=== PATIENT | male | born 1990 | race Hispanic/Latino ===

== ENCOUNTER 2024-10-30 13:09 | Emergency (ER) | payer SELFPAY ==
--- NOTE | ~2024-10-30 | XR_ITS ---
EXAMINATION: XR chest 2V DATE: 10/30/2024 13:37 INDICATION: Shortness of breath. TECHNIQUE: Frontal and lateral views of the chest were obtained. COMPARISON: None. FINDINGS: There is no pneumonia, pleural effusion, or pneumothorax. The heart size is normal. IMPRESSION: 1. No acute cardiopulmonary disease. Reviewed, dictated and finalized at location A. NESS ADVISOR
--- NOTE | 2024-10-30 13:25 | ECG_ITS ---
Test Date: 2024-10-30 13:56:18 Measurements Intervals [place] Rate: 99 P: 37 [place]: 141 QRS: 73 QRSD: 100 T: 27 QT: 310 QTc: 399 Interpretive Statements SINUS RHYTHM MINIMAL Q WAVES- INFERIOR LEADS BASELINE ARTIFACT- I, II, III, AVR, AVL, AVF BORDERLINE ECG No previous ECG available for comparison Electronically Signed On 10-30-2024 19:19:52 [employer] by Nir Gasca D.O.
--- NOTE | 2024-10-30 13:26 | ED.SOB ---
HPI - SOB/Dyspnea General Chief Complaint: Shortness of Breath/Dyspnea Stated Complaint: sob Time Seen by Provider: 10/30/24 13:20 History of Present Illness HPI Narrative: 34-year-old male presenting to the emergency room with chief complaint of shortness of breath and minimally productive cough. Patient states symptoms have been going on for last several weeks. Associated with white phlegm with some blood tinged occasional sputum. Denies any nausea vomiting. Today started coughing free willing started developing some chest discomfort. No history of diabetes or hypertension. States he had childhood asthma but has not had any inhaler since then. No allergies. Has not taken any medications aside from NyQuil for symptom control. Denies any sick contacts. Related Data Allergies Allergy/AdvReac Type Severity Reaction Status Date / Time No Known Allergies Allergy Verified 10/30/24 13:44 Review of Systems Review of Systems: As reviewed above in HPI Exam Narrative: GENERAL: Overall well-appearing and coughing very frequently throughout the examination but not any distress. HEAD: [Normocephalic, atraumatic.] EYES: [PERRLA and EOMI.] ENT: Nares clear, no rhinorrhea or epistaxis. Mucous membranes moist. NECK: Supple. CHEST: [Clear to auscultation. No respiratory distress.] Coughing frequently HEART: [Regular rate and rhythm]. No murmur heard. [Normal peripheral pulses.] ABDOMEN: [Soft, nondistended], [nontender], [No rigidity or guarding] EXTREMITIES: Normal range of motion. [No edema.] SKIN: Warm, dry, no rash. NEURO: [No focal deficits]. Alert and oriented [x3.] PSYCH: [Normal mood and affect.] Course Vital Signs Vital signs: Vital Signs Temperature 36.4 C 10/30/24 13:45 Pulse Rate 98 10/30/24 13:45 Respiratory Rate 22 H 10/30/24 13:45 Blood Pressure 143/91 H 10/30/24 13:45 Pulse Oximetry 98 10/30/24 13:45 Oxygen Delivery Room Air 10/30/24 13:45 Temperature 36.4 C 10/30/24 13:45 Pulse Rate 102 H 10/30/24 14:14 Respiratory Rate 14 10/30/24 14:14 Blood Pressure 143/91 H 10/30/24 13:45 Pulse Oximetry 98 10/30/24 13:45 Oxygen Delivery Room Air 10/30/24 13:45 MDM - SOB/Dyspnea MDM Narrative Medical decision making narrative: 34-year-old male presenting with what sounds to be upper respiratory infection symptoms including a productive cough, difficulty in breathing and chest discomfort with coughing. Symptoms going on for last several weeks, worsening this morning so he came to the ER. Tried NyQuil without any other symptom controlling medications. He is coughing very frequently throughout the examination but is nonproductive. He has clear breath sounds with a signs of respiratory distress. Overall he is well-appearing and healthy. Will obtain a two view chest x-ray, EKG for his chest discomfort and COVID fluid RSV swabs were obtained. Suspicion presently is for viral infection versus pneumonia versus bronchitis, less likely any kind thoracic processes as pneumothorax, laryngospasm or asthma. He was treated with benzonatate for cough, pseudoephedrine for decongestion and given a nebulizer treatment. Patient was re-evaluated had symptomatic improvement, no longer coughing and felt much better. His chest x-ray shows no consolidation or pneumonia. He does have RSV on his viral panel and his EKG was nonischemic. Patient is safe and stable for discharge home at this time will send him with a Medrol Dosepak as well as albuterol as needed in addition to benzonatate. Patient family were comfortable with this plan of care. Medical Records Attestation: I reviewed the patient's medical records. Lab Data Attestation: I reviewed the patient's lab results. Labs: Lab Results 10/30/24 Range/Units 13:37 Influenza A (RT-PCR) Negative (Negative) Influenza B (RT-PCR) Negative (Negative) RSV (RT-PCR) Positive A (Negative) SARS-CoV-2 RNA (RT-PCR) Negative (Negative) Imaging Data Attestation: I personally reviewed and interpreted this imaging study as follows: My impression: Impressions Chest X-Ray 10/30/24 13:41 IMPRESSION: 1. No acute cardiopulmonary disease. Discharge Plan Discharge Clinical Impression: Respiratory syncytial virus (RSV), Acute bronchiolitis due to respiratory syncytial virus (RSV) Patient Disposition: Home, Self-Care Condition: Stable Instructions: Antibiotic Form, RSV (Respiratory Syncytial Virus) Infection (ED) Additional Instructions: Your x-ray was reassuring without any pneumonia, you have a inflammatory process called bronchiolitis likely secondary to the RSV virus that you have tested positive for. We will send you home with steroids and albuterol. Return with any new or worsening concerns otherwise follow-up with regular doctor. Tylenol and ibuprofen for pain or fevers. Patient Language: Serbian Prescriptions: New benzonatate 200 mg capsule 200 mg PO TID PRN (Reason: cough) Qty: 20 0RF methylprednisolone [Medrol ([place])] 4 mg tablets,dose pack See Rx Instructions .ROUTE .COMPLEX Qty: 21 0RF Rx Instructions: orally per package directions albuterol sulfate 90 mcg/actuation HFA aerosol inhaler 2 puff inhalation QID PRN (Reason: shortness of breath or wheezing) Qty: 8.5 0RF Follow-up/Referrals: PHYSICIAN NOT ON STAFF,NONSTAFF [Primary Care Provider] - Time of Disposition: 14:38
[2024-10-30 13:45] VITALS: BP 143/91; PULSE 98; RESP 22; TEMP 36.4; O2SAT 98
[2024-10-30] MEDS: BENZONATATE 100 MG CAPSULE 200 MG PO (13:51)
[2024-10-30] MEDS: PSEUDOEPHEDRINE HCL 30 MG TABLET PO (13:51)
[2024-10-30 14:07] VITALS: PULSE 94; RESP 14
[2024-10-30] MEDS: IPRATROPIUM 0.5 MG/ALBUTEROL SULFATE 2.5 MG AMPUL.NEB 3 ML INHALATION (14:07)
[2024-10-30 14:14] VITALS: PULSE 102; RESP 14
[2024-10-30 14:26] LABS: Influenza A QL RT-PCR Negative (Negative); Influenza B QL RT-PCR Negative (Negative); RSV RNA, RT-PCR Positive (Negative); SARS-CoV-2 RNA PCR Negative (Negative)
[2024-10-30 15:00] VITALS: BP 145/99; PULSE 104; RESP 16; O2SAT 98
== END 2024-10-30 15:29 | disposition home or self-care (01) ==
PROVIDERS: Emergency Provider Student in an Organized Health Care Education/Training Program
DX: J21.0 Acute bronchiolitis due to respiratory syncytial virus (principal); Z20.822 Contact with and (suspected) exposure to COVID-19; R94.31 Abnormal electrocardiogram [ECG] [EKG]
CPT/HCPCS: 71046; 87637; 93005; 94640; 99283; A9270